=== PATIENT | male | born 1955 | race Caucasian/White ===

== ENCOUNTER 2020-07-24 12:50 | Inpatient (IN) | payer BC ==
[~2020-07-24] VITALS: Ht 193 cm; Wt 110.0 kg
[2020-07-24] MEDS ORDERED: KETOROLAC 15 MG/ML VIAL. IVP ONE (13:00)
[2020-07-24] MEDS ORDERED: IV NORMAL SALINE 1,000ML 1,000 ML IV ONE ×2 (13:00)
[2020-07-24] MEDS ORDERED: KETOROLAC 15 MG/ML VIAL. ONE (13:02)
[2020-07-24 13:38] LABS: BASO % 0 % (0-3); EOS % 0 % (0-3); HEMATOCRIT 37.7 % (39.0-53.0); HEMOGLOBIN 12.5 g/dL (13.0-17.5); LYMPH # 0.4 x10^3/uL (1.0-4.8); LYMPH % 3 % (24-48); MEAN CORPUSCULAR HEMOGLOBIN 29 pg (25-35); MEAN CORPUSCULAR HGB CONC 33 g/dL (31-37); MEAN CORPUSCULAR VOLUME 88 fL (79-100); MONO # 1.1 x10^3/uL (0.0-1.1); MONO % 8 % (0-9); NEUT % 88 % (31-73); PLATELET COUNT 119 x10^3/uL (140-400); WHITE BLOOD COUNT 13.6 x10^3/uL (4.0-11.0)
--- NOTE | 2020-07-24 13:43 | EKG ---
[address] [address] Test Date: 2020-07-24 Test Time: 13:18:45 Pat Name: ANGIE ROCHA Department: Room: Gender: M [employer]: JOYCE : 1955 Requested By: OLIVA MADRID Order Number: [id number] Reading MD: Measurements Intervals [place] Rate: 95 P: -9 ND: 160 QRS: -11 QRSD: 148 T: 146 QT: 380 QTc: 481 Interpretive Statements SINUS RHYTHM LEFT ATRIAL ABNORMALITY LEFTWARD AXIS LEFT BUNDLE BRANCH BLOCK ABNORMAL ECG RI6.02 No previous ECG available for comparison
[2020-07-24 13:45] LABS: CALCIUM 8.5 mg/dL (8.5-10.1); CREATININE 1.3 mg/dL (0.7-1.3); GFR 55.8; POTASSIUM 3.8 mmol/L (3.5-5.1)
[2020-07-24 13:56] LABS: ALBUMIN 3.6 g/dL (3.4-5.0); DIRECT BILIRUBIN 0.4 mg/dL (0.0-0.2); MAGNESIUM 1.5 mg/dL (1.8-2.4); TOTAL BILIRUBIN 1.1 mg/dL (0.2-1.0); TOTAL PROTEIN 6.8 g/dL (6.4-8.2)
--- NOTE | 2020-07-24 13:56 | RAD ---
AP chest. HISTORY: Fever AP view was taken of the chest. There is no pleural effusion. The heart is normal in size. There are diffuse bilateral hazy infiltrates which can be related to a atypical pneumonia or Covid-19 pneumonia . IMPRESSION: 1. Bilateral infiltrates. Electronically signed by: Tank Skelton MD (07/24/2020 1:53 PM) [id number]
--- NOTE | 2020-07-24 14:08 | RAD ---
CT cervical spine without contrast: Reason for examination: Fell with head trauma and weakness. Helical images were obtained through the cervical spine from skull base through the thoracic apices w ith no contrast administered. Reconstruction was performed in sagittal and coronal planes. Exposure: One or more of the following individualized dose reduction techniques were utilized for thi s examination: 1. Automated exposure control 2. Adjustment of the mA and/or kV according to patient size 3. Use of iterative reconstruction technique. The C1 ring is intact. The odontoid process appears to be intact and normally centered between the la teral masses of C1. The cervical vertebral bodies are normally aligned anteriorly and posteriorly. No acute fracture or subluxation is seen. The posterior elements are intact. There are however some hyp ertrophic changes off the endplates both anteriorly and posteriorly at the C 5/6 and C6-7 levels with moderate to severe loss of disc height at the C5-6 level. The hypertrophic spurring does cause moder ate right neural foraminal stenosis. At the C6-7 disc level, the hypertrophic spurring and disc bulgi ng appear to cause at least mild central stenosis as well as moderate stenosis of the right neural fo ramen. The remaining discs are maintained. Prevertebral soft tissues are normal. IMPRESSION: Moderate to severe degenerative disc disease with hypertrophic spurring at the C5-6 and C6-7 levels w ith moderate right neural foraminal stenosis at the C5-6 and C6-7 levels and mild central stenosis at the C6-7 level. No acute bony abnormalities in the cervical spine. Electronically signed by: Odalys Ortiz MD (07/24/2020 2:06 PM) [facility]
[2020-07-24] MEDS ORDERED: AZITHROMYCIN 500 MG in IV NORMAL SALINE 250ML 250 ML IV ONE (14:30)
--- NOTE | 2020-07-24 14:35 | PHYS DOC ---
Past History Past Medical History: Hypertension Past Surgical History: No Surgical History Alcohol Use: None General Adult EDM: Chief Complaint: FEVER HPI: HPI: 65 yo Review of Systems: Review of Systems: Constitutional: Denies fever or chills Eyes: Denies change in visual acuity HENT: Denies nasal congestion or sore throat Respiratory: Denies cough or shortness of breath Cardiovascular: Denies chest pain or edema GI: Denies abdominal pain, nausea, vomiting, bloody stools or diarrhea : Denies dysuria Musculoskeletal: Denies back pain or joint pain Integument: Denies rash Neurologic: Denies headache, focal weakness or sensory changes Endocrine: Denies polyuria or polydipsia Lymphatic: Denies swollen glands Psychiatric: Denies depression or anxiety Current Medications: Current Meds: Current Medications Medications (Trade) Dose Ordered Sig/Jeffrey Start Time Stop Time Status Last Admin Dose Admin Ketorolac Tromethamine (Toradol 15mg Vial) 15 mg STK-MED ONCE 07/24/20 13:02 07/24/20 13:02 DC Sodium Chloride 1,000 ml @ 1,000 mls/hr 1X ONCE 07/24/20 13:00 07/24/20 13:59 DC Allergies: Allergies: Allergies Coded Allergies Type Severity Reaction Last Updated Verified Penicillins Allergy Unknown 07/24/20 Yes Physical Exam: PE: Constitutional: Well developed, well nourished, no acute distress, non-toxic appearance. HENT: Normocephalic, atraumatic, Eyes: EOMI, conjunctiva normal, no discharge. Neck: Normal range of motion, supple, Cardiovascular: S1/2 present, regular rhythm Lungs & Thorax: Speaking in full sentences, bilateral equal chest rise, no tachypnea or increased work of breathing Abdomen: soft, no tenderness, Skin: Warm, dry, no erythema, no rash. [] Back: No tenderness, no CVA tenderness. [] Extremities: No tenderness, no cyanosis, no lower extremity edema Neurologic: Alert and oriented X 3, normal motor function, normal sensory function, no focal deficits noted. [] Psychologic: Affect normal, judgement normal, mood normal. [] Current Patient Data: Labs: Laboratory Tests Test 07/24/20 13:10 White Blood Count 13.6 x10^3/uL (4.0-11.0) H Red Blood Count 4.30 x10^6/uL (4.30-5.70) Hemoglobin 12.5 g/dL (13.0-17.5) L Hematocrit 37.7 % (39.0-53.0) L Mean Corpuscular Volume 88 fL (79-100) Mean Corpuscular Hemoglobin 29 pg (25-35) Mean Corpuscular Hemoglobin Concent 33 g/dL (31-37) Red Cell Distribution Width 15.0 % (11.5-14.5) H Platelet Count 119 x10^3/uL (140-400) L Neutrophils (%) (Auto) 88 % (31-73) H Lymphocytes (%) (Auto) 3 % (24-48) L Monocytes (%) (Auto) 8 % (0-9) Eosinophils (%) (Auto) 0 % (0-3) Basophils (%) (Auto) 0 % (0-3) Neutrophils # (Auto) 12.0 x10^3uL (1.8-7.7) H Lymphocytes # (Auto) 0.4 x10^3/uL (1.0-4.8) L Monocytes # (Auto) 1.1 x10^3/uL (0.0-1.1) Eosinophils # (Auto) 0.0 x10^3/uL (0.0-0.7) Basophils # (Auto) 0.0 x10^3/uL (0.0-0.2) Prothrombin Time 12.0 SEC (9.4-11.4) H Prothrombin Time INR 1.2 (0.9-1.1) H Activated Partial Thromboplast Time 29 SEC (23-33) Sodium Level 140 mmol/L (136-145) Potassium Level 3.8 mmol/L (3.5-5.1) Chloride Level 102 mmol/L (98-107) Carbon Dioxide Level 25 mmol/L (21-32) Anion Gap 13 (6-14) Blood Urea Nitrogen 19 mg/dL (8-26) Creatinine 1.3 mg/dL (0.7-1.3) Estimated GFR (Cockcroft-Gault) 55.8 Glucose Level 151 mg/dL (70-99) H Calcium Level 8.5 mg/dL (8.5-10.1) Magnesium Level 1.5 mg/dL (1.8-2.4) L Total Bilirubin 1.1 mg/dL (0.2-1.0) H Direct Bilirubin 0.4 mg/dL (0.0-0.2) H Aspartate Amino Transferase (AST) 19 U/L (15-37) Alanine Aminotransferase (ALT) 28 U/L (16-63) Alkaline Phosphatase 37 U/L (46-116) L Creatine Kinase 299 U/L (39-308) Troponin I Quantitative < 0.017 ng/mL (0-0.055) CF-Dsy-R-Type Natriuretic Peptide 899 pg/mL (0-124) H Total Protein 6.8 g/dL (6.4-8.2) Albumin 3.6 g/dL (3.4-5.0) Vital Signs: Vital Signs Date Time Temp Pulse Resp B/P (MAP) Pulse Ox O2 Delivery O2 Flow Rate FiO2 07/24/20 13:56 103.1 30 170/76 (107) 94 Room Air EKG: EKG: Tension and 85 bpm, left axis deviation, QRS 148, QTc 481, bundle branch block present, T wave inversions 1, aVL and V6, no STEMI equivalents per modified's scarbossas criteria Radiology/Procedures: Radiology/Procedures: []IMAGING REPORT Signed PATIENT: ANGIE ROCHA AACCOUNT: [id number] : 1955 LOCATION: ER AGE: 65 SEX: M EXAM STATUS: REG ER ORD. PHYSICIAN: OLIVA MADRID DO REASON: fever PROCEDURE: PORTABLE CHEST 1V AP chest. HISTORY: Fever AP view was taken of the chest. There is no pleural effusion. The heart is normal in size. There are diffuse bilateral hazy infiltrates which can be related to a atypical pneumonia or Covid-19 pneumonia. IMPRESSION: 1. Bilateral infiltrates. Electronically signed by: Tank Skelton MD (07/24/2020 1:53 PM) [id number] DICTATED AND SIGNED BY: TANK SKELTON MD DATE: 07/24/20 [id number] CC: ALOK LEON MD; OLIVA MADRID DO ~MTH0 0 IMAGING REPORT Signed PATIENT: ANGIE ROCHA AACCOUNT: [id number] : 1955 LOCATION: ER AGE: 65 SEX: M EXAM STATUS: REG ER ORD. PHYSICIAN: OLIVA MADRID DO REASON: fall/head trauma, weak PROCEDURE: CT CERVICAL SPINE WO CONTRAST CT cervical spine without contrast: Reason for examination: Fell with head trauma and weakness. Helical images were obtained through the cervical spine from skull base through the thoracic apices with no contrast administered. Reconstruction was performed in sagittal and coronal planes. Exposure: One or more of the following individualized dose reduction techniques were utilized for this examination: 1. Automated exposure control 2. Adjustment of the mA and/or kV according to patient size 3. Use of iterative reconstruction technique. The C1 ring is intact. The odontoid process appears to be intact and normally centered between the lateral masses of C1. The cervical vertebral bodies are normally aligned anteriorly and posteriorly. No acute fracture or subluxation is seen. The posterior elements are intact. There are however some hypertrophic changes off the endplates both anteriorly and posteriorly at the C 5/6 and C6-7 levels with moderate to severe loss of disc height at the C5-6 level. The hypertrophic spurring does cause moderate right neural foraminal stenosis. At the C6-7 disc level, the hypertrophic spurring and disc bulging appear to cause at least mild central stenosis as well as moderate stenosis of the right neural foramen. The remaining discs are maintained. Prevertebral soft tissues are normal. IMPRESSION: Moderate to severe degenerative disc disease with hypertrophic spurring at the C5-6 and C6-7 levels with moderate right neural foraminal stenosis at the C5-6 and C6-7 levels and mild central stenosis at the C6-7 level. No acute bony abnormalities in the cervical spine. Electronically signed by: Aleksey Grant MD (07/24/2020 2:06 PM) [facility] DICTATED AND SIGNED BY: ALEKSEY GRANT MD DATE: 07/24/20 1355 CC: ALOK LEON MD; OLIVA MADRID DO ~MTH0 0 Heart Score: C/O Chest Pain: No Risk Factors: Risk Factors: DM, Current or recent (<one month) smoker, HTN, HLP, family history of CAD, obesity. Risk Scores: Score 0 - 3: 2.5% MACE over next 6 weeks - Discharge Home Score 4 - 6: 20.3% MACE over next 6 weeks - Admit for Clinical Observation Score 7 - 10: 72.7% MACE over next 6 weeks - Early Invasive Strategies Course & Med Decision Making: Course & Med Decision Making Pertinent Labs and Imaging studies reviewed. (See chart for details) Concern for sepsis 2/2 CAP I have spoken with the patient and/or caregivers. I have explained the patient's condition, diagnosis and treatment plan based on the information available to me at this time. I have answered the patient's and/or caregivers questions and answered any concerns. The patient and/or caregivers have as good an understanding of the patient's diagnosis, condition and treatment plan as can be expected at this point. The patient has been stabilized within the capability of the emergency department. The patient will be transported for further care and management or will be moved to an observation or inpatient service. I have communicated with the staff or medical practitioner taking over this patient's care. Dragon Disclaimer: Dragon Disclaimer: This electronic medical record was generated, in whole or in part, using a voice recognition dictation system. Departure Departure: Impression: Primary Impression: Sepsis Additional Impressions: COVID-19 Bilateral pneumonia Disposition: 01 DC HOME SELF CARE/HOMELESS Admitting Physician: Yahir Martinez Condition: GUARDED Referrals: ALOK LEON MD (PCP) OLIVA MADRID DO Jul 24, 2020 14:35
[2020-07-24] MEDS ORDERED: IV NORMAL SALINE 250ML 250 ML ONE (14:42)
[2020-07-24] MEDS ORDERED: cefTRIAXone SODIUM 1 GM VIAL ONE (14:42)
[2020-07-24] MEDS ORDERED: AZITHROMYCIN 500 MG VIAL. IV ONE (14:42)
[2020-07-24] MEDS ORDERED: IV NORMAL SALINE 50ML 50 ML ONE (14:42)
--- NOTE | 2020-07-24 14:59 | RAD ---
CT head without contrast: Reason for examination: Fell with large bump in left temporal region. Helical images were obtained through the brain with no contrast administered. Exposure: One or more of the following individualized dose reduction techniques were utilized for thi s examination: 1. Automated exposure control 2. Adjustment of the mA and/or kV according to patient size 3. Use of iterative reconstruction technique. Ventricular systems are symmetric and not abnormally dilated. No midline shift is seen. There is no e vidence of intracranial hemorrhage, infarct, mass or edema. No abnormalities of seen at the orbits. T he paranasal sinuses and mastoid air cells are clear. No acute skull abnormality is seen. Scalp hemat alisa is present laterally on the left. IMPRESSION: No acute intracranial abnormality evident. Left lateral scalp hematoma. Electronically signed by: Odalys Ortiz MD (07/24/2020 2:57 PM) DEB[facility]AH
[2020-07-24] MEDS ORDERED: LOSA100T14 PO (18:27)
[2020-07-24] MEDS ORDERED: AZITHROMYCIN 500 MG in IV NORMAL SALINE 250ML 250 ML IV SCH (18:30)
[2020-07-24] MEDS: ACETAMINOPHEN 500 MG TABLET PO SCH (18:54)
[2020-07-24] MEDS: IV NORMAL SALINE 1,000ML 1,000 ML IV SCH (19:57)
[2020-07-24 20:13] VITALS: BP 131/69
[2020-07-24 23:16] VITALS: BP 120/89
[2020-07-25] MEDS: ACETAMINOPHEN 500 MG TABLET PO SCH ×2 (01:17→15:24)
[2020-07-25 01:18] VITALS: BP 137/66
[2020-07-25 02:05] LABS: BARBITURATES NEG (NEG); BENZODIAZEPINES NEG (NEG); CANNABINOIDS NEG (NEG); COCAINE NEG (NEG); METHADONE NEG (NEG); OPIATES NEG (NEG); PHENCYCLIDINE NEG (NEG)
[2020-07-25 02:14] LABS: BACTERIA,URINE FEW /HPF (0-FEW); BILIRUBIN,URINE NEG (NEG); CLARITY,URINE CLEAR; COLOR,URINE YELLOW; GLUCOSE,URINE NEG (NEG); NITRITE,URINE NEG (NEG); RBC,URINE OCC /HPF (0-2); SQUAMOUS EPITHELIAL CELL,UR OCC /LPF
[2020-07-25 02:25] LABS: AMPHETAMINE/METHAMPHETAMINE NEG (NEG)
[2020-07-25] MEDS: IV NORMAL SALINE 1,000ML 1,000 ML IV SCH ×2 (04:08→14:22)
[2020-07-25] MEDS: ASPIRIN CHEWABLE 81 MG TABLET. PO SCH (07:44)
[2020-07-25] MEDS: LACTOBACILLUS RHAMNOSUS GG 1 CAPSULE. PO SCH ×2 (09:08→20:11)
--- NOTE | 2020-07-25 10:43 | HP ---
ADMIT DATE: 07/24/2020 ATTENDING PHYSICIAN: Dr. Saenz. CHIEF COMPLAINT: Fevers. HISTORY OF PRESENT ILLNESS: The patient is a very pleasant young appearing 65-year-old gentleman, otherwise healthy and active. He had COVID exposure and recovered in mid May. He now comes in with fevers, chills, nausea and profound weakness. He denied any GI symptoms. Chest x-ray still demonstrated infiltrates from the previous infection. They did not appear anything new. There is no decompensation. Clinically, he appears dehydrated. He was admitted then with viremia and dehydration. PAST MEDICAL HISTORY: Unremarkable for any chronic illnesses. He has essential hypertension. ALLERGIES: HE IS ALLERGIC TO PENICILLIN. CURRENT PRESCRIPTION MEDICINE: Just losartan. SOCIAL HISTORY: He is a nonsmoker, nondrinker. Fairly active. He is a retired afterschool. He lives in [place] with his and son. FAMILY HISTORY: Mom of complications of stroke at age 80. Father at age 89 of complications of old age and heart disease. REVIEW OF SYSTEMS: Significant for fevers, chills or rigors. He had COVID infection over a month ago. No other recent exposure. He has been kind of self-quarantine. All other systems reviewed turned to be negative. PHYSICAL EXAMINATION: GENERAL: When I saw him, this is a pleasant, healthy young-appearing gentleman appearing younger than his stated age. VITAL SIGNS: Initial vital signs initially showed a temperature of 102.6 degrees Fahrenheit, he is afebrile now. Blood pressure 131/69, pulse 93 and regular, oxygen saturation 97% on 2 liters nasal cannula. HEENT: Head is without trauma. Pupils are reactive. Sclerae nonicteric. Oropharynx is clear. NECK: Supple, no bruits. LUNGS: Otherwise clear. CARDIOVASCULAR: Showed regular heart tones. No gallops. ABDOMEN: Soft. EXTREMITIES: Without edema. NEUROLOGIC: Focally intact. Speech is fluent. SKIN: Warm and dry. PERTINENT LABORATORY STUDIES: Hemoglobin 12.5 g, white count 13,600. Electrolytes within normal range. Creatinine is 1.3 mg/dL. Cardiac enzymes negative. Lactic acid was normal and bilirubin was 1.1. Transaminases are normal. Chest x-ray showed a small infiltrate, which is residual from his COVID infection. No acute new infiltrates identified. ASSESSMENT: 1. A 65-year-old gentleman with viremia unlikely with COVID. 2. Dehydration. 3. Essential hypertension. PLAN: 1. Admit to the inpatient unit. 2. Empiric antibiotics have been ordered with the Rocephin and Zithromax. 3. IV hydration. 4. Diet as tolerated. 5. Continue losartan. 6. Reassurance. DANIELA SAENZ MD DR: FIDENCIO/denisa JOB#: [id number] / [id number] ALOK Lawrence MD
[2020-07-25 10:48] VITALS: BP 138/73
[2020-07-25] MEDS ORDERED: ENOXAPARIN 30 MG/0.3 ML SYRINGE. SQ ONE (12:00)
[2020-07-25] MEDS ORDERED: AZITHROMYCIN 500 MG in IV NORMAL SALINE 250ML 250 ML IV SCH (14:30)
[2020-07-25 15:35] VITALS: BP 152/79
[2020-07-25 19:33] VITALS: BP 151/74
[2020-07-25 23:13] VITALS: BP 157/89
[2020-07-26] MEDS: IV NORMAL SALINE 1,000ML 1,000 ML IV SCH (01:14)
[2020-07-26] MEDS: ASPIRIN CHEWABLE 81 MG TABLET. PO SCH (08:26)
[2020-07-26] MEDS: LACTOBACILLUS RHAMNOSUS GG 1 CAPSULE. PO SCH (08:26)
[2020-07-26 08:37] VITALS: BP 173/91
[2020-07-26] MEDS ORDERED: LOSARTAN 50 MG TABLET. PO SCH (09:15)
[2020-07-26 09:17] VITALS: BP 173/91
--- NOTE | 2020-07-26 10:09 | DS ---
DATE OF DISCHARGE: 07/26/2020 ATTENDING PHYSICIAN: Dr. Saenz. FINAL DISCHARGE DIAGNOSES: 1. Acute viremia resolved. 2. Self-limiting viral syndrome. 3. Remote history of COVID exposure in 05/2020. 4. Dehydration, rehydrated. 5. Essential hypertension. HISTORY AND PHYSICAL: The patient is a very pleasant, healthy 65-year-old gentleman who was admitted with profound weakness and dehydration. He had COVID exposure 6 weeks ago in the middle of May. A repeat chest x-ray showed some chronic scarring at the bases. No new acute infiltrates identified. He was weak, clinically dehydrated. I do not believe that the coronavirus is the cause of his symptoms. He had some GI symptoms with nausea and the diarrhea. I believe he had a separate self-limiting viremia superimposed with a red flores of COVID infection 6 weeks ago. He was admitted for further treatment and evaluation. PHYSICAL EXAMINATION: Please see the dictated note. PERTINENT LABORATORY AND X-RAY STUDIES: On admission, his hemoglobin was 12.5 g/dL with a white count of 13,000. Electrolytes were within normal range. Nonfasting blood sugar 150. Creatinine 1.3 mg/dL. Cardiac enzymes negative for coronary ischemia. Transaminases and bilirubin were normal. His chest x-ray as noted. He had a CT of the head in the ED, which showed no acute strokes. There is a left lateral scalp hematoma, which is mild in nature. COURSE IN THE HOSPITAL: The patient was admitted. He was started on empiric Rocephin and Zithromax and this was stopped. He was given IV fluids with improvement of symptoms. He still had fevers and chills, but that has since resolved. By the third hospital day, he was doing much better. Blood pressure is actually up and he will be on his losartan. We did give him a dose of Lovenox here regarding hypercoagulability. I did some literature search the incidence of blood clots following COVID infection. It is between 2 and 7%. Therefore, I recommended a baby aspirin. I do not believe anticoagulation is indicated since he is fairly active and that the risk of blood thinners outweigh the benefit. On the third hospital day, he was doing better. His blood pressure was improved. He was afebrile. He was eating solid foods. The diarrhea had subsided and he was having formed stools. He is discharged then with continuation of losartan 100 mg p.o. daily. He has a blood pressure monitoring kit at home. I suggested that he check his BP daily for the next 2 weeks and take the report and to see Dr. Sanchez who has been his primary care doctor for many years. No restriction on diet. Limitation of activity, until he is back to strength. The patient was then discharged from our hospital in stable condition with explicit instructions and followup care. DANIELA SAENZ MD DR: FIDENCIO/denisa JOB#: [id number] / [id number] ALOK Lawrence MD
== END 2020-07-26 10:02 | disposition home or self-care (01) | DRG 871 ==
LOC: ER 12:50 → 1 SOUTH 15:51
PROVIDERS: ADMIT Hospitalist; ATTEND Hospitalist
DX: A41.89 Other specified sepsis (principal); J18.9 Pneumonia, unspecified organism; D68.59 Other primary thrombophilia; E86.0 Dehydration; I10 Essential (primary) hypertension; M48.02 Spinal stenosis, cervical region; Z88.0 Allergy status to penicillin; Z82.3 Family history of stroke; Z82.49 Family history of ischemic heart disease and other diseases of the circulatory system; B34.9 Viral infection, unspecified
CPT/HCPCS: 36415; 70450; 71045; 72125; 80048; 80076; 80307; 81001; 82550; 83605; 83735; 83880; 84484; 85025; 85610; 85730; 87040; 87077; 87086; 87186; 93005; 96365; 96368; 96375; J0456; J0696; J1650; J1885; J7050; 99285-25; J7030

== ENCOUNTER → 2020-11-20 | Day surgery (SDC) | payer BC ==
[~2020-11-20] MED LIST: ACETAMINOPHEN 500 MG TABLET PO PRN; BALANCED SALT IRRIG SOLN NO.2 500 ML IO ONE; BENZONATATE 100 MG CAPSULE. PO PRN; BRIMONIDINE 0.2% OPHTH SOLUTION 5ML BOTTLE. OS ONE; CEFUROXIME OPHTH 4 MG/0.4 ML SYRINGE. OS ONE; CHONDROIT-SOD-HYALURONATE KIT. OS ONE; IBUPROFEN 200 MG TABLET PO PRN; IPRATRPIUM/ALBUTEROL 0.5/2.5MG 3 ML NEBU. NEB PRN; IV RINGERS SOLUTION,LACTATED 1,000 ML IV SCH; LIDO/EPI IN BSS OPHTH 2.7 ML SYRINGE. OS ONE; LIDOCAINE 2% JELLY 6ML IN APPLICATOR. ONE; LOSA100T14 PO; MIDAZOLAM HCL PF 2 MG/2 ML VIAL. IV ONE; ONDANSETRON PF 4 MG/2 ML VIAL. IV PRN; PHENYLEPHRINE 10% OPHTH SOLUTION 5ML BOTTLE. OS PRN; POVIDONE-IODINE 5% OPHTH SOLUTION 30ML BOTTLE. OS ONE; POVIDONE-IODINE 5% OPHTH SOLUTION 30ML BOTTLE. OS PRN; PROPARACAINE 0.5% OPHTH SOLUTION 15ML BOTTLE. OS ONE; PROPARACAINE 0.5% OPHTH SOLUTION 15ML BOTTLE. OS PRN; prednisoLONE ACETATE 1% OPHTH SUSPENSION 5ML BOTTLE. OS ONE
[2020-11-20] MEDS: KETOROLAC TROMETHAMINE 0.5% OPHTH SOLUTION BOTTLE. OS SCH ×2 (06:52→06:58)
[2020-11-20] MEDS: TOBRAMYCIN 0.3% OPHTH SOLUTION 5ML BOTTLE. OS SCH ×2 (06:52→06:58)
[2020-11-20] MEDS: TROPICAMIDE 1% OPHTH SOLUTION 15ML BOTTLE. OS SCH ×3 (06:52→07:05)
[2020-11-20] MEDS: PHENYLEPHRINE 2.5% OPHTH SOLUTION 2ML BOTTLE. OS SCH ×3 (06:52→07:05)
--- NOTE | 2020-11-20 07:44 | PDOC4 ---
SURGEON: Akila Murry MD Date of Procedure: 11/20/20 PREOP Diagnosis Visually significant cataract: Left Eye OS POSTOP Diagnosis Same PROCEDURE: Phaco w/ posterior chamber IOL: Left Eye OS ANESTHESIA Deep forniceal periocular 2% Lidocaine jelly Zahida/retro bulbar block with 2% Lidocaine with 0.5% Marcaine DESCRIPTION OF PROCEDURE The risks, benefits, and alternatives were discussed with the patient who elected to proceed. Informed consent was obtained in writing and placed in the chart After anesthetizing the eye topically, the patient was taken to the operating room, and the operative eye was prepped and draped in the usual sterile fashion for ocular surgery. A wire lid speculum was placed. A 1-mm clear corneal paracentesis incision was created with the side-port blade at a position three o'clock hours clockwise from the temporal cornea. Then, 1% non-preserved Lidocaine with epinephrine was injected into the anterior chamber followed by viscoelastic. Cotton-tipped applicators were used to stabilize the globe, and a 2.4 mm keratome was used to create a self-sealing incision in clear cornea at the temporal limbus. The Utrata forceps were used to create a continuous curvilinear capsulorrhexis. Balanced saline solution was injected via cannula beneath the capsulorrhexis edge to hydrodissect the lens nucleus and cortex from the lens capsule. The phacoemulsification handpiece and a chopping instrument were then used to remove the lens nucleus. The remaining epinuclear material and cortex were removed with the irrigation/aspiration handpiece. Vis coelastic was used to re-inflate the lens capsule, and the intraocular lens was injected directly into the capsular bag. The corneal wound edges were hydrated with balanced salt solution on a cannula and the irrigation/aspiration handpiece was used to extract the remaining viscoelastic. Cefuroxime 0.1mg/ml / Vigamox 0.5% was injected into the anterior chamber intracamerally. The wounds were inspected and found to be watertight at an appropriate intraocular pressure. Topical antibiotic drops were placed on the corneal surface. LRI: No If Yes, Number [] [place] [] Length [] degrees Depth [] microns Incision [place]: 180 Toric Lens [place] [] Patch/shield with Maxitrol/Tobradex/Erythromycin ointment: Yes No Co-managed patients/postop examination stable for co-management with referring doctor. EBL EBL: None SPECIMANS COLLECTED Specimens Collected: None AKILA MURRY MD Nov 20, 2020 07:44
[2020-11-20 07:54] VITALS: BP 137/76
== END | disposition home or self-care (01) ==
LOC: SURG 06:28
PROVIDERS: ATTEND Ophthalmology
DX: H25.89 Other age-related cataract (principal); Z79.899 Other long term (current) drug therapy; Z88.0 Allergy status to penicillin
CPT/HCPCS: 66984; J2250; V2632